=== PATIENT | male | born 1975 | race Caucasian/White ===

== ENCOUNTER 2019-10-15 22:10 | Emergency (ER) | payer MEDICAID, SELFPAY ==
[~2019-10-15] VITALS: Ht 172.7 cm; Wt 87.9 kg
[2019-10-15 22:13] VITALS: BP 152/96
--- NOTE | 2019-10-15 23:15 | NUR ---
CALLED FOR ROOM, NOT IN LOBBY, NEXT PT ROOMED
--- NOTE | 2019-10-15 23:30 | NUR ---
PT CALLED FOR PIT PROCESS, NOT IN LOBBY, SECOND CALL.
--- NOTE | 2019-10-16 00:06 | NUR ---
NO ANSWER WHEN CALLED TIMES 3
== END 2019-10-16 00:07 ==
LOC: ED 23:40
DX: R00.0 Tachycardia, unspecified (principal); Z53.21 Procedure and treatment not carried out due to patient leaving prior to being seen by health care provider
CPT/HCPCS: 93005